=== PATIENT | female | born 1975 | race Caucasian/White ===

== ENCOUNTER 2018-01-12 10:39 | Emergency (ER) | payer MEDICARE, OTHER ==
[~2018-01-12] VITALS: Ht 154.9 cm; Wt 70.4 kg
[~2018-01-12 10:39] MED LIST: ALBU8HFA PO; AZIT-55 PO; ESOM40CA PO; FLUT16SP10 NAS; LISI1TAB13 PO; PANT-47 PO; PRED10TA23 PO; TRAZ-143 PF
[2018-01-12] MEDS ORDERED: normal saline 1000ML IV soln IVB ONE (12:10)
[2018-01-12] MEDS ORDERED: albuterol 2.5 MG/3 ML nebule NEB ONE (12:10)
[2018-01-12] MEDS ORDERED: ipratropium/albuterol 3ml nebule NEB ONE (12:10)
[2018-01-12] MEDS ORDERED: PRED20TA PO (13:44)
[2018-01-12] MEDS ORDERED: predniSONE 20 mg tablet PO ONE (13:45)
[2018-01-12 14:09] VITALS: BP 137/91
== END 2018-01-12 14:11 | disposition home or self-care (01) ==
LOC: ER 10:39
DX: J45.909 Unspecified asthma, uncomplicated (principal); I10 Essential (primary) hypertension; K21.9 Gastro-esophageal reflux disease without esophagitis; I25.10 Atherosclerotic heart disease of native coronary artery without angina pectoris; Z56.0 Unemployment, unspecified; Z88.0 Allergy status to penicillin; Z79.899 Other long term (current) drug therapy
CPT/HCPCS: 71045; 94640; 94760; 96360; 99284; J7030

== ENCOUNTER 2018-07-03 10:01 | Emergency (ER) | payer MEDICARE, OTHER ==
[~2018-07-03] VITALS: Ht 157.5 cm; Wt 64.8 kg
[~2018-07-03 10:01] MED LIST changes: -AZIT-55 PO; -PRED10TA23 PO; -TRAZ-143 PF; +TRAZ-218 PF
[2018-07-03] MEDS ORDERED: predniSONE 20 mg tablet PO ONE (10:20)
[2018-07-03] MEDS ORDERED: albuterol 2.5 MG/3 ML nebule CONTNEB PRN (10:20)
[2018-07-03] MEDS ORDERED: ipratropium 0.5 MG/2.5ML nebule IH ONE (10:20)
[2018-07-03] MEDS ORDERED: methylPREDNISolone sod succ 125mg/2ml vial IV ONE (11:45)
[2018-07-03] MEDS ORDERED: normal saline 1000ML IV soln IVB ONE (11:45)
[2018-07-03 12:09] LABS: BASOPHILS % (AUTO) 0.1 % (0-1); EOSINOPHILS # (AUTO) 0.1 X10'3 (0-0.9); EOSINOPHILS % (AUTO) 1.6 % (0-6); HEMATOCRIT 45.5 % (35.0-45.0); HEMOGLOBIN 15.8 g/dl (12.0-16.0); LYMPHOCYTES # (AUTO) 0.3 X10'3 (1.1-4.8); LYMPHOCYTES % (AUTO) 3.9 % (21-51); MEAN CORPUSCULAR HEMOGLOBIN 32.1 PG (27.0-31.0); MEAN CORPUSCULAR HGB CONC 34.7 % (33.0-36.5); MEAN CORPUSCULAR VOLUME 92.5 FL (78-98); MEAN PLATELET VOLUME 9.1 FL (7.4-10.4); MONOCYTES # (AUTO) 0.1 X10'3 (0-0.9); MONOCYTES % (AUTO) 1.3 % (2-12); NEUTROPHILS # (AUTO) 7.8 X10'3 (1.8-7.7); NEUTROPHILS % (AUTO) 93.1 % (42-75); PLATELET COUNT 251 X10'3 (140-440); RED BLOOD COUNT 4.92 X10'6 (4.20-5.60); RED CELL DISTRIBUTION WIDTH 13.7 % (11.5-14.5); WHITE BLOOD COUNT 8.4 X10'3 (4.5-11.0)
[2018-07-03 12:24] LABS: ALANINE AMINOTRANSFERASE 33 U/L (12-78); ALBUMIN 4.3 G/DL (3.4-5.0); ALBUMIN/GLOBULIN RATIO 1.2 (1.1-1.5); ALKALINE PHOSPHATASE 54 IU/L (46-116); ANION GAP 13 (8-16); ASPARTATE AMINO TRANSFERASE 29 U/L (10-37); BILIRUBIN,TOTAL 0.4 MG/DL (0.1-1.0); BLOOD UREA NITROGEN 10 MG/DL (7-18); BUN/CREATININE RATIO 11.4 (6.6-38.0); CALCIUM 9.5 MG/DL (8.5-10.1); CHLORIDE 102 MMOL/L (99-107); CREATININE 0.88 MG/DL (0.40-0.90); GLUCOSE 119 MG/DL (70-104); POTASSIUM 3.9 MMOL/L (3.5-5.1); SODIUM 137 MMOL/L (135-145); TOTAL CARBON DIOXIDE 21.8 MMOL/L (24-32); TOTAL PROTEIN 7.8 G/DL (6.4-8.2); eGFR 70 ML/MIN
[2018-07-03] MEDS: magnesium 1gm/100ml D5W IVPB 100 ML IV SCH ×2 (12:27→13:28)
[2018-07-03 12:43] LABS: CLARITY,URINE SLIGHTLY CLOUDY (Clear); COLOR,URINE YELLOW (Yellow); GLUCOSE, URINE NEGATIVE (Neg); KETONES,URINE 15 mg/dl (Neg); LEUKOCYTE ESTERASE ,URINE NEGATIVE (Neg); NITRITES, URINE NEGATIVE (Neg); OCCULT BLOOD,URINE SMALL (Neg); PH,URINE 5.5 (4.8-8.0); PROTEIN,URINE NEGATIVE (Neg); UROBILINOGEN,URINE 0.2 E.U/dL (0.2-1.0)
[2018-07-03 12:44] LABS: URINE HCG NEGATIVE (NEG)
[2018-07-03 12:48] LABS: UA COLLECTION TYPE CLN CATCH MIDSTREAM
[2018-07-03 12:50] LABS: MUCUS STRANDS MANY /LPF (Neg); SQUAMOUS EPITHELIAL CELL,UR MANY /LPF (FEW)
[2018-07-03 12:53] LABS: BACTERIA,URINE 1+ /HPF (Neg); RBC,URINE 0-2 /HPF (0-2); WBC,URINE 0-4 /HPF (0-4)
[2018-07-03 14:42] VITALS: BP 132/66
== END 2018-07-03 14:44 | disposition home or self-care (01) ==
LOC: ER 10:01
DX: J45.909 Unspecified asthma, uncomplicated (principal); I10 Essential (primary) hypertension; K21.9 Gastro-esophageal reflux disease without esophagitis; Z56.0 Unemployment, unspecified; Z88.0 Allergy status to penicillin; Z79.899 Other long term (current) drug therapy
CPT/HCPCS: 36415; 71045; 80053; 81001; 81025; 85025; 85379; 94640; 94644; 94760; 96365; 96366; 96375; 99291; J2930; J7030; J7512

== ENCOUNTER 2018-11-10 09:01 | Emergency (ER) | payer MEDICARE, OTHER ==
[~2018-11-10] VITALS: Ht 157.5 cm; Wt 69.0 kg
[2018-11-10] MEDS ORDERED: magnesium 2GM in 50ml NS 50 ML IV ONE (09:15)
[2018-11-10] MEDS ORDERED: albuterol 2.5 MG/3 ML nebule CONTNEB PRN (09:15)
[2018-11-10] MEDS ORDERED: LORazepam 2 mg/ml vial IV ONE (09:15)
[2018-11-10] MEDS ORDERED: normal saline 1000ML IV soln IVB ONE (09:15)
[2018-11-10] MEDS ORDERED: methylPREDNISolone sod succ 125mg/2ml vial IV ONE (09:15)
--- NOTE | 2018-11-10 10:50 | NUR ---
PT FINISHED CONT NEB RT TREATMENT, REPORTS FEEL OPEN UP AND NOT TIGHT WITH BREATHING, PT IS SPO2% 100% ON ROOM AIR, BUT ASKED TO BE PLACED ON OXYGEN FOR COMFORT, PT REPORTS USING OXYGEN AT HOME AT NIGHT, PT STILL HAS EXPIRATORY WHEEZES
[2018-11-10] MEDS ORDERED: terbutaline 1 mg/ml inj SQ STA (11:03)
[2018-11-10] MEDS ORDERED: ipratropium/albuterol 3ml nebule NEB ONE (11:05)
[2018-11-10 12:02] VITALS: BP 121/65
== END 2018-11-10 12:21 | disposition home or self-care (01) ==
LOC: ER 09:02
DX: J45.901 Unspecified asthma with (acute) exacerbation (principal); I10 Essential (primary) hypertension; K21.9 Gastro-esophageal reflux disease without esophagitis; Z88.0 Allergy status to penicillin; Z79.899 Other long term (current) drug therapy; Z56.0 Unemployment, unspecified
CPT/HCPCS: 71045; 94640; 94644; 94760; 96365; 96372; 96375; 99291; J2060; J2930; J3105; J3475; J7030

== ENCOUNTER 2019-03-25 06:19 | Emergency (ER) | payer MEDICARE ==
[~2019-03-25] VITALS: Ht 157.5 cm; Wt 70.0 kg
[~2019-03-25 06:19] MED LIST changes: -TRAZ-218 PF; +TRAZ-251 PF
[2019-03-25] MEDS ORDERED: acetaminophen 325mg tablet PO ONE (07:00)
[2019-03-25] MEDS ORDERED: HYDR-4353 PO (07:07)
[2019-03-25] MEDS ORDERED: ONDA4TAB6 PO (07:07)
--- NOTE | 2019-03-25 07:09 | NUR ---
pt left foot elevated ice pack applied medicated for pain as ordered with tylenol 650 mg
--- NOTE | 2019-03-25 07:32 | NUR ---
DIRECTOR OF SUSTAINABILITY PROGRAMS AT BEDSIDE.
--- NOTE | 2019-03-25 08:03 | NUR ---
PT HAD SOFT CAST PLACED BY TECH, BEEN GIVEN INSTRUCTIONS ON NON WEIGHT BEARING, AND HOW TO USE THE CRUTCHES. PT DEMONSTRATED ABILITY WELL. SUGGESTED PATIENT RID THE FLIP FLOP WITH CRUTCHES USE.
[2019-03-25 08:05] VITALS: BP 142/94
== END 2019-03-25 08:00 | disposition home or self-care (01) ==
LOC: ER 06:20
DX: S92.312A Displaced fracture of first metatarsal bone, left foot, initial encounter for closed fracture (principal); S80.212A Abrasion, left knee, initial encounter; I10 Essential (primary) hypertension; J45.909 Unspecified asthma, uncomplicated; K21.9 Gastro-esophageal reflux disease without esophagitis; Z88.0 Allergy status to penicillin; Z79.899 Other long term (current) drug therapy; Z56.0 Unemployment, unspecified; W01.0XXA Fall on same level from slipping, tripping and stumbling without subsequent striking against object, initial encounter; Y93.01 Activity, walking, marching and hiking; Y92.89 Other specified places as the place of occurrence of the external cause; Y99.8 Other external cause status
CPT/HCPCS: 29515; 73630; 99283

== ENCOUNTER 2019-03-27 17:29 | Emergency (ER) | payer MEDICARE ==
[~2019-03-27] VITALS: Ht 157.5 cm; Wt 66.8 kg
[~2019-03-27 17:29] MED LIST changes: +HYDR-4353 PO; +ONDA4TAB6 PO
[2019-03-27 17:31] VITALS: BP 158/92
--- NOTE | 2019-03-27 18:15 | NUR ---
PRESENT SPLINT REMOVED. NEW SPLINT WITH SARA WRAP APPLIED TO LEFT LOWER LEG. PATIENT STATES THIS SPLINT IS MORE COMFORTABLE AND PROVIDING SUPPORT TO LEFT FOOT.
== END 2019-03-27 18:31 | disposition home or self-care (01) ==
LOC: ER 17:29
DX: S92.312D Displaced fracture of first metatarsal bone, left foot, subsequent encounter for fracture with routine healing (principal); S80.212D Abrasion, left knee, subsequent encounter; I10 Essential (primary) hypertension; J45.909 Unspecified asthma, uncomplicated; K21.9 Gastro-esophageal reflux disease without esophagitis; Z56.0 Unemployment, unspecified; Z88.0 Allergy status to penicillin; Z79.899 Other long term (current) drug therapy; W01.0XXD Fall on same level from slipping, tripping and stumbling without subsequent striking against object, subsequent encounter
CPT/HCPCS: 29515; 73564; 99283

== ENCOUNTER 2019-04-05 11:35 | Outpatient (CLI) | payer MEDICARE ==
[2019-04-05 12:40] VITALS: BP 139/93
== END 2019-04-05 11:58 | disposition home or self-care (01) ==
LOC: ORTHO 11:35
PROVIDERS: ATTEND Orthopaedic Surgery
DX: S62.232A Other displaced fracture of base of first metacarpal bone, left hand, initial encounter for closed fracture (principal); I10 Essential (primary) hypertension; J45.909 Unspecified asthma, uncomplicated; X58.XXXA Exposure to other specified factors, initial encounter; Y93.89 Activity, other specified; Y92.89 Other specified places as the place of occurrence of the external cause; Y99.8 Other external cause status
CPT/HCPCS: G0463

== ENCOUNTER 2019-05-04 11:15 | Outpatient (CLI) | payer MEDICARE ==
[~2019-05-04 11:15] MED LIST changes: -HYDR-4353 PO
== END 2019-05-04 12:25 | disposition home or self-care (01) ==
LOC: ORTHO 11:15
PROVIDERS: ATTEND Orthopaedic Surgery
DX: S92.312D Displaced fracture of first metatarsal bone, left foot, subsequent encounter for fracture with routine healing (principal); I10 Essential (primary) hypertension; J45.909 Unspecified asthma, uncomplicated; X58.XXXD Exposure to other specified factors, subsequent encounter
CPT/HCPCS: 73630

== ENCOUNTER 2019-08-15 10:19 | Emergency (ER) | payer MEDICARE ==
[~2019-08-15] VITALS: Ht 157.5 cm; Wt 71.3 kg
[~2019-08-15 10:19] MED LIST changes: -LISI1TAB13 PO; +LISI1TAB29 PO
--- NOTE | 2019-08-15 10:54 | NUR ---
Pt complains of sinus pressure and left ear pain. Some clear drainage from ear. Yellow and bloody when she blows her nose and yellow sputum with cough.
[2019-08-15] MEDS ORDERED: triamcinolone acetonide 40mg/ml inj IM ONE (11:45)
[2019-08-15] MEDS ORDERED: albuterol 2.5 MG/3 ML nebule NEB ONE (11:45)
--- NOTE | 2019-08-15 11:52 | NUR ---
pt med administered by patricia dong ,informed rt is paged for neb treatment.rt at bedside to give breathing tx.pt vitals updated.
[2019-08-15] MEDS ORDERED: PRED10TA23 PO (12:03)
[2019-08-15 12:30] VITALS: BP 148/93
== END 2019-08-15 12:32 | disposition home or self-care (01) ==
LOC: ER 10:20
DX: J45.901 Unspecified asthma with (acute) exacerbation (principal); I10 Essential (primary) hypertension; J45.909 Unspecified asthma, uncomplicated; K21.9 Gastro-esophageal reflux disease without esophagitis; F32.9 Major depressive disorder, single episode, unspecified; I25.10 Atherosclerotic heart disease of native coronary artery without angina pectoris; Z88.0 Allergy status to penicillin; Z79.899 Other long term (current) drug therapy
CPT/HCPCS: 94640; 94760; 96372; 99284; J3301

== ENCOUNTER 2019-08-25 12:11 | Emergency (ER) | payer MEDICARE ==
[~2019-08-25] VITALS: Ht 157.5 cm; Wt 68.2 kg
[~2019-08-25 12:11] MED LIST changes: +PRED10TA23 PO
[2019-08-25 12:45] LABS: BASOPHILS % (AUTO) 0.3 % (0-1); EOSINOPHILS % (AUTO) 0.3 % (0-6); HEMATOCRIT 44.9 % (35.0-45.0); HEMOGLOBIN 15.7 g/dl (12.0-16.0); LYMPHOCYTES # (AUTO) 1.4 X10'3 (1.1-4.8); LYMPHOCYTES % (AUTO) 16.6 % (21-51); MEAN CORPUSCULAR HGB CONC 34.9 g/dL (33.0-36.5); MEAN CORPUSCULAR VOLUME 94.5 FL (78-98); MEAN PLATELET VOLUME 8.8 FL (7.4-10.4); MONOCYTES # (AUTO) 0.6 X10'3 (0-0.9); MONOCYTES % (AUTO) 7.4 % (2-12); NEUTROPHILS # (AUTO) 6.4 X10'3 (1.8-7.7); NEUTROPHILS % (AUTO) 75.4 % (42-75); PLATELET COUNT 314 X10'3 (140-440); RED BLOOD COUNT 4.75 X10'6 (4.20-5.60); RED CELL DISTRIBUTION WIDTH 12.4 % (11.5-14.5); WHITE BLOOD COUNT 8.5 X10'3 (4.5-11.0)
[2019-08-25 13:00] LABS: PARTIAL THROMBOPLASTIN TIME 24 SECONDS (22-32)
[2019-08-25 13:02] LABS: ALANINE AMINOTRANSFERASE 49 U/L (12-78); ALBUMIN 4.4 G/DL (3.4-5.0); ALBUMIN/GLOBULIN RATIO 1.1 (1.1-1.5); ALKALINE PHOSPHATASE 56 IU/L (46-116); ANION GAP 17 (8-16); ASPARTATE AMINO TRANSFERASE 40 U/L (10-37); BLOOD UREA NITROGEN 18 MG/DL (7-18); BUN/CREATININE RATIO 21.4 (6.6-38.0); CALCIUM 9.5 MG/DL (8.5-10.1); CHLORIDE 96 MMOL/L (99-107); CREATININE 0.84 MG/DL (0.40-0.90); GLUCOSE 99 MG/DL (70-104); POTASSIUM 3.4 MMOL/L (3.5-5.1); SODIUM 139 MMOL/L (135-145); TOTAL CARBON DIOXIDE 25.6 MMOL/L (24-32); TOTAL PROTEIN 8.4 G/DL (6.4-8.2); eGFR 74 ML/MIN
[2019-08-25] MEDS ORDERED: ondansetron 4mg rapidly disintigrating tab PO ONE (13:40)
[2019-08-25 14:00] LABS: D-DIMER 0.39 MG/L FEU (0-0.50)
[2019-08-25] MEDS ORDERED: ONDA4TAB12 PO (14:11)
[2019-08-25 14:22] VITALS: BP 145/106
== END 2019-08-25 14:25 | disposition home or self-care (01) ==
LOC: ER 12:12
DX: R00.2 Palpitations (principal); R11.2 Nausea with vomiting, unspecified; I10 Essential (primary) hypertension; J45.909 Unspecified asthma, uncomplicated; K21.9 Gastro-esophageal reflux disease without esophagitis; F41.9 Anxiety disorder, unspecified; F32.9 Major depressive disorder, single episode, unspecified; I25.10 Atherosclerotic heart disease of native coronary artery without angina pectoris; Z88.0 Allergy status to penicillin; Z79.899 Other long term (current) drug therapy
CPT/HCPCS: 36415; 71045; 80053; 84484; 85025; 85379; 85610; 85730; 93005; 99284

== ENCOUNTER 2019-12-23 13:03 | Emergency (ER) | payer MEDICARE ==
[~2019-12-23] VITALS: Ht 157.5 cm; Wt 69.0 kg
[~2019-12-23 13:03] MED LIST changes: +ONDA4TAB12 PO; -PRED10TA23 PO
[2019-12-23 13:21] VITALS: BP 126/72
[2019-12-23] MEDS ORDERED: PRED20TA PO (15:34)
== END 2019-12-23 15:45 | disposition home or self-care (01) ==
LOC: ER 13:04
DX: B09 Unspecified viral infection characterized by skin and mucous membrane lesions (principal); I10 Essential (primary) hypertension; J45.909 Unspecified asthma, uncomplicated; K21.9 Gastro-esophageal reflux disease without esophagitis; F41.9 Anxiety disorder, unspecified; F32.9 Major depressive disorder, single episode, unspecified; Z79.899 Other long term (current) drug therapy; Z88.0 Allergy status to penicillin
CPT/HCPCS: 99283

== ENCOUNTER 2020-01-01 23:55 | Emergency (ER) | payer MEDICARE ==
[~2020-01-01] VITALS: Ht 157.5 cm; Wt 68.0 kg
[~2020-01-01 23:55] MED LIST changes: +PRED20TA PO
[2020-01-02] MEDS ORDERED: magnesium 2GM in 50ml NS 50 ML IV ONE (00:20)
[2020-01-02] MEDS ORDERED: methylPREDNISolone sod succ 125mg/2ml vial IV ONE (00:20)
[2020-01-02] MEDS ORDERED: albuterol 2.5 MG/3 ML nebule CONTNEB PRN (00:20)
[2020-01-02 01:29] VITALS: BP 122/83
== END 2020-01-02 02:15 | disposition home or self-care (01) ==
LOC: ER 23:56
DX: J45.901 Unspecified asthma with (acute) exacerbation (principal); I10 Essential (primary) hypertension; K21.9 Gastro-esophageal reflux disease without esophagitis; F32.9 Major depressive disorder, single episode, unspecified; F41.9 Anxiety disorder, unspecified; Z88.0 Allergy status to penicillin; Z79.899 Other long term (current) drug therapy
CPT/HCPCS: 94644; 96365; 96375; 99285; J2930; J3475; 94760

== ENCOUNTER 2020-01-23 10:35 | Emergency (ER) | payer MEDICARE ==
[~2020-01-23] VITALS: Ht 157.5 cm; Wt 68.0 kg
[2020-01-23 10:43] VITALS: BP 136/86
[2020-01-23] MEDS ORDERED: ipratropium/albuterol 3ml nebule NEB ONE (10:45)
[2020-01-23 11:03] LABS: BASOPHILS # (AUTO) 0.1 X10'3 (0-0.2); BASOPHILS % (AUTO) 1.6 % (0-1); EOSINOPHILS # (AUTO) 0.2 X10'3 (0-0.9); EOSINOPHILS % (AUTO) 3.3 % (0-6); HEMATOCRIT 43.4 % (35.0-45.0); LYMPHOCYTES % (AUTO) 29.6 % (21-51); MEAN CORPUSCULAR HEMOGLOBIN 32.7 PG (27.0-31.0); MEAN CORPUSCULAR HGB CONC 34.5 g/dL (33.0-36.5); MEAN CORPUSCULAR VOLUME 94.6 FL (78-98); MONOCYTES # (AUTO) 0.5 X10'3 (0-0.9); MONOCYTES % (AUTO) 8.1 % (2-12); NEUTROPHILS # (AUTO) 3.8 X10'3 (1.8-7.7); NEUTROPHILS % (AUTO) 57.4 % (42-75); PLATELET COUNT 274 X10'3 (140-440); RED BLOOD COUNT 4.59 X10'6 (4.20-5.60); RED CELL DISTRIBUTION WIDTH 12.5 % (11.5-14.5); WHITE BLOOD COUNT 6.7 X10'3 (4.5-11.0)
[2020-01-23 11:22] LABS: D-DIMER 0.21 MG/L FEU (0-0.50)
[2020-01-23 11:23] LABS: ALANINE AMINOTRANSFERASE 23 U/L (12-78); ALBUMIN 3.7 G/DL (3.4-5.0); ALKALINE PHOSPHATASE 59 IU/L (46-116); ANION GAP 8 (8-16); ASPARTATE AMINO TRANSFERASE 24 U/L (10-37); BILIRUBIN,TOTAL 0.5 MG/DL (0.1-1.0); BLOOD UREA NITROGEN 10 MG/DL (7-18); BUN/CREATININE RATIO 11.8 (6.6-38.0); CALCIUM 8.7 MG/DL (8.5-10.1); CHLORIDE 104 MMOL/L (99-107); CREATININE 0.85 MG/DL (0.40-0.90); GLUCOSE 105 MG/DL (70-104); POTASSIUM 3.2 MMOL/L (3.5-5.1); SODIUM 139 MMOL/L (135-145); TOTAL CARBON DIOXIDE 27.2 MMOL/L (24-32); TOTAL PROTEIN 7.4 G/DL (6.4-8.2); eGFR 72 ML/MIN
== END 2020-01-23 11:54 | disposition home or self-care (01) ==
LOC: ER 10:35
DX: J45.909 Unspecified asthma, uncomplicated (principal); I10 Essential (primary) hypertension; K21.9 Gastro-esophageal reflux disease without esophagitis; F41.9 Anxiety disorder, unspecified; F32.9 Major depressive disorder, single episode, unspecified; Z88.0 Allergy status to penicillin; Z79.899 Other long term (current) drug therapy
CPT/HCPCS: 36415; 71046; 80053; 85025; 85379; 93005; 94640; 94760; 99285

== ENCOUNTER 2021-04-15 16:24 | Emergency (ER) | payer MEDICARE ==
[~2021-04-15] VITALS: Ht 157.5 cm; Wt 69.9 kg
[~2021-04-15 16:24] MED LIST changes: -PRED20TA PO
[2021-04-15] MEDS ORDERED: POLY17PO10 PO (21:19)
[2021-04-15] MEDS ORDERED: PHEN51CR24 RC (21:19)
[2021-04-15 21:25] VITALS: BP 117/89
== END 2021-04-15 21:27 | disposition home or self-care (01) ==
LOC: ER 16:25
DX: K60.2 Anal fissure, unspecified (principal); I10 Essential (primary) hypertension; J45.909 Unspecified asthma, uncomplicated; K21.9 Gastro-esophageal reflux disease without esophagitis; Z79.899 Other long term (current) drug therapy; Z88.0 Allergy status to penicillin
CPT/HCPCS: 99282; 99283

== ENCOUNTER 2021-07-14 17:04 | Emergency (ER) | payer MEDICARE ==
[~2021-07-14] VITALS: Ht 157.5 cm; Wt 69.1 kg
[~2021-07-14 17:04] MED LIST changes: +PHEN51CR24 RC
[2021-07-14 18:38] VITALS: BP 155/98
== END 2021-07-14 21:24 | disposition left against medical advice (07) ==
LOC: ER 17:06
DX: R00.2 Palpitations (principal); Z53.21 Procedure and treatment not carried out due to patient leaving prior to being seen by health care provider
CPT/HCPCS: 93005

== ENCOUNTER 2021-07-16 04:13 | Emergency (ER) | payer BC, MEDICARE ==
[~2021-07-16] VITALS: Ht 157.5 cm; Wt 67.6 kg
[2021-07-16 04:25] VITALS: BP 144/91
== END 2021-07-16 06:29 | disposition home or self-care (01) ==
LOC: ER 04:13
DX: M54.2 Cervicalgia (principal); R51.9 Headache, unspecified; R19.7 Diarrhea, unspecified; H53.9 Unspecified visual disturbance; I10 Essential (primary) hypertension; J45.909 Unspecified asthma, uncomplicated; K21.9 Gastro-esophageal reflux disease without esophagitis; F41.9 Anxiety disorder, unspecified; F32.9 Major depressive disorder, single episode, unspecified; Z88.0 Allergy status to penicillin
CPT/HCPCS: 70450; 72125; 99285

== ENCOUNTER 2021-10-01 08:50 | Emergency (ER) | payer MEDICARE ==
[~2021-10-01] VITALS: Ht 157.5 cm; Wt 67.3 kg
[~2021-10-01 08:50] MED LIST changes: -LISI1TAB29 PO; +LISI1TAB53 PO
[2021-10-01 09:10] VITALS: BP 135/93
[2021-10-01] MEDS ORDERED: DEXT30SU5 PO (10:23)
[2021-10-01] MEDS: albuterol 2.5 MG/3 ML nebule NEB ONE (10:43)
[2021-10-01] MEDS ORDERED: PRED20TA PO (11:17)
== END 2021-10-01 11:19 | disposition home or self-care (01) ==
LOC: ER 08:51
DX: Z13.89 Encounter for screening for other disorder (principal); Z20.822 Contact with and (suspected) exposure to COVID-19; J20.9 Acute bronchitis, unspecified; R05.9 Cough, unspecified; R09.89 Other specified symptoms and signs involving the circulatory and respiratory systems; I10 Essential (primary) hypertension; J45.909 Unspecified asthma, uncomplicated; K21.9 Gastro-esophageal reflux disease without esophagitis; F41.9 Anxiety disorder, unspecified; F32.9 Major depressive disorder, single episode, unspecified; Z88.0 Allergy status to penicillin; Z79.899 Other long term (current) drug therapy
CPT/HCPCS: 71045; 87635; 94640; 99284; C9803; 94760

== ENCOUNTER 2021-11-19 08:38 | Emergency (ER) | payer MEDICARE ==
[~2021-11-19] VITALS: Ht 157.5 cm; Wt 64.5 kg
[~2021-11-19 08:38] MED LIST changes: +DEXT30SU5 PO
[2021-11-19] MEDS ORDERED: predniSONE 20 mg tablet PO ONE (09:30)
[2021-11-19] MEDS: albuterol 2.5 MG/3 ML nebule CONTNEB PRN ×2 (09:40→11:43)
[2021-11-19] MEDS ORDERED: terbutaline 1 mg/ml inj SQ STA (10:44)
[2021-11-19] MEDS ORDERED: albuterol 2.5 MG/3 ML nebule CONTNEB PRN (11:20)
[2021-11-19] MEDS ORDERED: FLUT16SP10 NAS (12:35)
[2021-11-19] MEDS ORDERED: PRED20TA PO (12:35)
[2021-11-19 13:41] VITALS: BP 130/84
== END 2021-11-19 13:13 | disposition home or self-care (01) ==
LOC: ER 08:38
DX: J45.901 Unspecified asthma with (acute) exacerbation (principal); I10 Essential (primary) hypertension; K21.9 Gastro-esophageal reflux disease without esophagitis; Z88.0 Allergy status to penicillin; Z79.899 Other long term (current) drug therapy
CPT/HCPCS: 71046; 94640; 94644; 94645; 96372; 99285; J3105; J7512; 94760; A7015

== ENCOUNTER 2022-11-16 11:04 | Emergency (ER) | payer MEDICARE, MEDICAID ==
[~2022-11-16] VITALS: Ht 157.5 cm; Wt 71.8 kg
[2022-11-16] MEDS ORDERED: magnesium 2GM in 50ml NS 50 ML IV ONE (12:35)
[2022-11-16] MEDS ORDERED: methylPREDNISolone sod succ 125mg/2ml vial IV ONE (12:35)
[2022-11-16] MEDS ORDERED: albuterol 2.5 MG/3 ML nebule CONTNEB PRN (12:35)
[2022-11-16] MEDS ORDERED: ipratropium/albuterol 3ml nebule NEB ONE (13:45)
[2022-11-16] MEDS ORDERED: CEPH250T PO (14:16)
[2022-11-16] MEDS ORDERED: PRED20TA PO (14:16)
[2022-11-16 14:43] VITALS: BP 122/80
--- NOTE | 2022-11-16 14:43 | NUR ---
Per RT Pt refused neb tx. RAQUEL pablo
== END 2022-11-16 14:46 | disposition home or self-care (01) ==
LOC: ER 11:04
DX: J20.9 Acute bronchitis, unspecified (principal); Z20.822 Contact with and (suspected) exposure to COVID-19; J45.901 Unspecified asthma with (acute) exacerbation; R06.02 Shortness of breath; I10 Essential (primary) hypertension; K21.9 Gastro-esophageal reflux disease without esophagitis; Z88.0 Allergy status to penicillin
CPT/HCPCS: 71045; 87635; 94644; 96365; 96366; 96375; 99291; C9803; J2930; J3475; 94640; 94760

== ENCOUNTER 2022-12-23 00:08 | Emergency (ER) | payer MEDICARE, MEDICAID ==
[~2022-12-23] VITALS: Ht 157.5 cm; Wt 75.0 kg
[2022-12-23] MEDS ORDERED: CLIN150C8 PO (01:23)
[2022-12-23] MEDS ORDERED: ERYT1OIN6 LEFTEYE (01:23)
[2022-12-23] MEDS ORDERED: erythromycin ophthalmic ointment 1gm tube LEFTEYE ONE (01:25)
[2022-12-23] MEDS ORDERED: clindamycin 150mg capsule PO ONE (01:25)
[2022-12-23 01:39] VITALS: BP 135/89
== END 2022-12-23 01:41 | disposition home or self-care (01) ==
LOC: ER 00:10
DX: J32.9 Chronic sinusitis, unspecified (principal); H10.022 Other mucopurulent conjunctivitis, left eye; I10 Essential (primary) hypertension; J45.909 Unspecified asthma, uncomplicated; K21.9 Gastro-esophageal reflux disease without esophagitis; F41.9 Anxiety disorder, unspecified; F32.9 Major depressive disorder, single episode, unspecified; Z90.710 Acquired absence of both cervix and uterus; Z88.0 Allergy status to penicillin; Z79.899 Other long term (current) drug therapy
CPT/HCPCS: 99283

== ENCOUNTER 2023-04-04 09:47 | Emergency (ER) | payer MEDICARE, MEDICAID ==
[~2023-04-04] VITALS: Ht 157.5 cm; Wt 72.8 kg
[~2023-04-04 09:47] MED LIST changes: +CLIN-214 PO
[2023-04-04 10:04] VITALS: BP 133/88
[2023-04-04] MEDS ORDERED: predniSONE 20 mg tablet PO ONE (10:10)
[2023-04-04] MEDS ORDERED: ipratropium/albuterol 3ml nebule NEB ONE (10:10)
[2023-04-04] MEDS ORDERED: AZIT250T2 PO (10:19)
[2023-04-04] MEDS ORDERED: PRED10TA PO (10:19)
== END 2023-04-04 11:34 | disposition home or self-care (01) ==
LOC: ER 09:47
DX: J45.901 Unspecified asthma with (acute) exacerbation (principal); J32.8 Other chronic sinusitis; K21.9 Gastro-esophageal reflux disease without esophagitis; F41.9 Anxiety disorder, unspecified; Z87.81 Personal history of (healed) traumatic fracture; I10 Essential (primary) hypertension; Z88.0 Allergy status to penicillin; Z79.899 Other long term (current) drug therapy
CPT/HCPCS: 71045; 94640; 99283; J7512; 94760

== ENCOUNTER 2023-08-12 16:26 | Emergency (ER) | payer MEDICARE, MEDICAID ==
[~2023-08-12] VITALS: Ht 157.5 cm; Wt 75.0 kg
[~2023-08-12 16:26] MED LIST changes: +PRED10TA PO
[2023-08-12] MEDS ORDERED: ibuprofen 200mg tablet PO ONE (16:50)
[2023-08-12 18:26] LABS: BASOPHILS # (AUTO) 0.1 X10'3 (0-0.2); BASOPHILS % (AUTO) 0.5 % (0-1); EOSINOPHILS % (AUTO) 0.3 % (0-6); HEMATOCRIT 38.3 % (35.0-45.0); HEMOGLOBIN 12.9 g/dl (12.0-16.0); LYMPHOCYTES # (AUTO) 0.8 X10'3 (1.1-4.8); LYMPHOCYTES % (AUTO) 5.8 % (21-51); MEAN CORPUSCULAR HEMOGLOBIN 32.1 PG (27.0-31.0); MEAN CORPUSCULAR HGB CONC 33.6 g/dL (33.0-36.5); MEAN CORPUSCULAR VOLUME 95.7 FL (78-98); MEAN PLATELET VOLUME 9.5 FL (7.4-10.4); MONOCYTES # (AUTO) 0.9 X10'3 (0-0.9); MONOCYTES % (AUTO) 6.7 % (2-12); NEUTROPHILS % (AUTO) 86.7 % (42-75); PLATELET COUNT 205 X10'3 (140-440); RED CELL DISTRIBUTION WIDTH 12.6 % (11.5-14.5); WHITE BLOOD COUNT 13.9 X10'3 (4.5-11.0)
[2023-08-12 18:46] VITALS: BP 113/71; PULSE 85; RESP 16; TEMP 99.3; O2SAT 95
[2023-08-12 18:46] LABS: ALANINE AMINOTRANSFERASE 27 U/L (12-78); ALBUMIN 2.9 G/DL (3.4-5.0); ALBUMIN/GLOBULIN RATIO 0.7 (1.1-1.5); ALKALINE PHOSPHATASE 89 IU/L (46-116); ANION GAP 9 (8-16); ASPARTATE AMINO TRANSFERASE 24 U/L (10-37); BLOOD UREA NITROGEN 8 MG/DL (7-18); BUN/CREATININE RATIO 9.2 (10.0-20.0); CALCIUM 8.6 MG/DL (8.5-10.1); CHLORIDE 98 MMOL/L (99-107); CREATININE 0.87 MG/DL (0.40-0.90); GLUCOSE 142 MG/DL (70-104); PRO BRAIN NATRIURETIC PEPTIDE 558 PG/ML (0-125); SODIUM 134 MMOL/L (135-145); TOTAL CARBON DIOXIDE 26.9 MMOL/L (24-32); TOTAL PROTEIN 7.2 G/DL (6.4-8.2); eCRCL 63 ML/MIN; eGFR 69 ML/MIN
[2023-08-12 18:57] LABS: POTASSIUM 2.7 MMOL/L (3.5-5.1)
[2023-08-12 20:27] LABS: LARGE PLATELETS FEW; PLATELET ESTIMATE NORMAL; TOTAL CELLS COUNTED 100
== END 2023-08-12 21:11 | disposition left against medical advice (07) ==
LOC: ER 16:27
DX: J18.9 Pneumonia, unspecified organism (principal); Z53.21 Procedure and treatment not carried out due to patient leaving prior to being seen by health care provider
CPT/HCPCS: 36415; 71046; 80053; 83605; 83880; 85007; 85025; 87040; 99281

== ENCOUNTER 2023-09-04 12:14 | Emergency (ER) | payer MEDICARE, MEDICAID ==
[~2023-09-04] VITALS: Ht 157.5 cm; Wt 75.0 kg
[2023-09-04] MEDS ORDERED: ipratropium 0.5 MG/2.5ML nebule IH ONE (12:30)
[2023-09-04] MEDS ORDERED: albuterol 2.5 MG/3 ML nebule NEB ONE (12:30)
[2023-09-04 12:54] VITALS: PULSE 72; RESP 16
[2023-09-04 13:07] VITALS: PULSE 77; RESP 16; O2SAT 100
[2023-09-04 13:27] VITALS: BP 111/72; PULSE 70; TEMP 98.3; O2SAT 100
[2023-09-04 13:36] VITALS: RESP 18
== END 2023-09-04 13:39 | disposition home or self-care (01) ==
LOC: ER 12:14
DX: J45.909 Unspecified asthma, uncomplicated (principal)
CPT/HCPCS: 71046; 94640; 94760; 99283

== ENCOUNTER 2023-09-19 11:36 | Inpatient (IN) | payer MEDICARE, MEDICAID ==
[~2023-09-19] VITALS: Ht 157.5 cm; Wt 70.5 kg
[2023-09-19 12:17] LABS: BASOPHILS # (AUTO) 0.1 X10'3 (0-0.2); BASOPHILS % (AUTO) 1.2 % (0-1); EOSINOPHILS # (AUTO) 0.3 X10'3 (0-0.9); EOSINOPHILS % (AUTO) 5.6 % (0-6); HEMATOCRIT 39.1 % (35.0-45.0); HEMOGLOBIN 13.3 g/dl (12.0-16.0); LYMPHOCYTES # (AUTO) 1.1 X10'3 (1.1-4.8); LYMPHOCYTES % (AUTO) 22.1 % (21-51); MEAN CORPUSCULAR HEMOGLOBIN 32.1 PG (27.0-31.0); MEAN CORPUSCULAR HGB CONC 33.9 g/dL (33.0-36.5); MEAN CORPUSCULAR VOLUME 94.7 FL (78-98); MEAN PLATELET VOLUME 9.1 FL (7.4-10.4); MONOCYTES # (AUTO) 0.5 X10'3 (0-0.9); MONOCYTES % (AUTO) 11.1 % (2-12); NEUTROPHILS # (AUTO) 2.9 X10'3 (1.8-7.7); PLATELET COUNT 212 X10'3 (140-440); RED BLOOD COUNT 4.13 X10'6 (4.20-5.60); RED CELL DISTRIBUTION WIDTH 13.3 % (11.5-14.5); WHITE BLOOD COUNT 4.9 X10'3 (4.5-11.0)
[2023-09-19 12:30] LABS: ALANINE AMINOTRANSFERASE 27 U/L (12-78); ALBUMIN 3.4 G/DL (3.4-5.0); ALBUMIN/GLOBULIN RATIO 0.9 (1.1-1.5); ALKALINE PHOSPHATASE 77 IU/L (46-116); ANION GAP 9 (8-16); ASPARTATE AMINO TRANSFERASE 27 U/L (10-37); BILIRUBIN,TOTAL 0.4 MG/DL (0.1-1.0); BLOOD UREA NITROGEN 6 MG/DL (7-18); BUN/CREATININE RATIO 8.2 (10.0-20.0); CALCIUM 8.2 MG/DL (8.5-10.1); CHLORIDE 101 MMOL/L (99-107); CREATININE 0.73 MG/DL (0.40-0.90); GLUCOSE 102 MG/DL (70-104); POTASSIUM 3.2 MMOL/L (3.5-5.1); SODIUM 133 MMOL/L (135-145); TOTAL CARBON DIOXIDE 23.4 MMOL/L (24-32); TOTAL PROTEIN 7.1 G/DL (6.4-8.2); eCRCL 75 ML/MIN; eGFR 85 ML/MIN
[2023-09-19 12:37] LABS: PRO BRAIN NATRIURETIC PEPTIDE 287 PG/ML (0-125)
[2023-09-19] MEDS ORDERED: dexamethasone sod phosphate 10mg/ml inj IV STA (15:03)
[2023-09-19] MEDS ORDERED: albuterol 2.5 MG/3 ML nebule NEB ONE (15:05)
[2023-09-19] MEDS ORDERED: magnesium 2GM in 50ml NS 50 ML IV ONE (15:05)
[2023-09-19] MEDS ORDERED: ipratropium 0.5 MG/2.5ML nebule IH ONE (15:05)
[2023-09-19 15:48] LABS: HCG SERUM QL NEGATIVE
[2023-09-19 16:19] VITALS: PULSE 76; RESP 16; O2SAT 98
[2023-09-19 16:34] VITALS: PULSE 78; RESP 16; O2SAT 98
[2023-09-19] MEDS ORDERED: albuterol 2.5 MG/3 ML nebule CONTNEB PRN (18:40)
[2023-09-19] MEDS ORDERED: mag hydrox/Alum hydrox/simeth 30ml oral suspension PO PRN (19:45)
[2023-09-19] MEDS ORDERED: magnesium 2GM in 50ml NS 50 ML IV PRN (19:45)
[2023-09-19] MEDS ORDERED: HYDROcodone/acetaminophen 10/325mg tab PO PRN (19:45)
[2023-09-19] MEDS ORDERED: potassium Cl 20 mEq SR tablet PO PRN ×2 (19:45)
[2023-09-19] MEDS ORDERED: albuterol 2.5 MG/3 ML nebule NEB PRN (19:45)
[2023-09-19] MEDS ORDERED: ondansetron/PF 4mg/2ml inj IV PRN (19:45)
[2023-09-19] MEDS ORDERED: acetaminophen 325mg tablet PO PRN ×2 (19:45)
[2023-09-19] MEDS ORDERED: magnesium 4gm in 100ml NS 100 ML IV PRN (19:45)
[2023-09-19] MEDS ORDERED: potassium Cl 40MEQ/1/2NS 520ml 520 ML IV PRN (19:45)
[2023-09-19] MEDS ORDERED: HYDROcodone/acetaminophen 5mg/325mg tablet PO PRN (19:45)
[2023-09-19] MEDS ORDERED: magnesium hydroxide 30ml (MOM) UD suspension PO PRN (19:45)
[2023-09-19] MEDS: K and/or MAG REPLACEMENT MC SCH (19:56)
[2023-09-19] MEDS ORDERED: enoxaparin 40mg/0.4ml syringe SQ SCH (20:00)
[2023-09-19] MEDS: docusate sod 100mg capsule PO SCH (20:01)
[2023-09-19] MEDS: budesonide 0.5mg/2ml UD nebule IH SCH (21:12)
[2023-09-19 21:13] VITALS: PULSE 98; RESP 16; O2SAT 97
[2023-09-19] MEDS: ipratropium/albuterol 3ml nebule NEB SCH (21:13)
[2023-09-19 21:19] VITALS: PULSE 91; RESP 18
--- NOTE | 2023-09-19 23:33 | NUR ---
pt placed onto in-patient bed
[2023-09-20] VITALS (8 sets, daily range): BP systolic 136; BP diastolic 83; PULSE 72–96; RESP 16–18; TEMP 98.7; O2SAT 96–98
[2023-09-20] MEDS: methylPREDNISolone sod succ 125mg/2ml vial IV SCH ×2 (00:46→07:46)
[2023-09-20] MEDS ORDERED: FLUT1BLS4 INH (00:59)
[2023-09-20] MEDS ORDERED: ESOM20CA PO (00:59)
[2023-09-20] MEDS: ipratropium/albuterol 3ml nebule NEB SCH ×3 (02:48→14:56)
--- NOTE | 2023-09-20 02:55 | NUR ---
rt at bedside for treatment
[2023-09-20 02:58] LABS: BASOPHILS % (AUTO) 0.1 % (0-1); EOSINOPHILS % (AUTO) 0 % (0-6); HEMOGLOBIN 13.6 g/dl (12.0-16.0); LYMPHOCYTES # (AUTO) 0.4 X10'3 (1.1-4.8); LYMPHOCYTES % (AUTO) 7.3 % (21-51); MEAN CORPUSCULAR HEMOGLOBIN 32.3 PG (27.0-31.0); MEAN CORPUSCULAR HGB CONC 33.9 g/dL (33.0-36.5); MEAN CORPUSCULAR VOLUME 95.1 FL (78-98); MEAN PLATELET VOLUME 9.2 FL (7.4-10.4); MONOCYTES # (AUTO) 0.1 X10'3 (0-0.9); MONOCYTES % (AUTO) 1.3 % (2-12); NEUTROPHILS # (AUTO) 5.6 X10'3 (1.8-7.7); NEUTROPHILS % (AUTO) 91.3 % (42-75); PLATELET COUNT 243 X10'3 (140-440); RED CELL DISTRIBUTION WIDTH 13.6 % (11.5-14.5); WHITE BLOOD COUNT 6.1 X10'3 (4.5-11.0)
[2023-09-20 03:19] LABS: ALANINE AMINOTRANSFERASE 34 U/L (12-78); ALBUMIN 3.4 G/DL (3.4-5.0); ALBUMIN/GLOBULIN RATIO 0.9 (1.1-1.5); ALKALINE PHOSPHATASE 76 IU/L (46-116); ANION GAP 9 (8-16); ASPARTATE AMINO TRANSFERASE 33 U/L (10-37); BILIRUBIN,TOTAL 0.2 MG/DL (0.1-1.0); BLOOD UREA NITROGEN 12 MG/DL (7-18); CALCIUM 8.6 MG/DL (8.5-10.1); CHLORIDE 99 MMOL/L (99-107); GLUCOSE 180 MG/DL (70-104); MAGNESIUM 2.4 MG/DL (1.5-2.4); POTASSIUM 3.9 MMOL/L (3.5-5.1); SODIUM 131 MMOL/L (135-145); TOTAL CARBON DIOXIDE 23.2 MMOL/L (24-32); TOTAL PROTEIN 7.4 G/DL (6.4-8.2); eCRCL 54 ML/MIN; eGFR 59 ML/MIN
[2023-09-20] MEDS: K and/or MAG REPLACEMENT MC SCH (07:20)
[2023-09-20] MEDS: docusate sod 100mg capsule PO SCH (07:45)
--- NOTE | 2023-09-20 07:59 | NUR ---
RT paged for kelly
[2023-09-20] MEDS ORDERED: montelukast 10mg tablet PO SCH (08:00)
[2023-09-20] MEDS ORDERED: CefTRIAXone/D5W-Rocephin 1gm 50 ML IV SCH (08:00)
[2023-09-20] MEDS: budesonide 0.5mg/2ml UD nebule IH SCH (08:34)
--- NOTE | 2023-09-20 08:42 | NUR ---
breakfast tray provided to patient
--- NOTE | 2023-09-20 10:20 | NUR ---
Attempted to give report to the floor
--- NOTE | 2023-09-20 10:49 | NUR ---
Received report from ER Nurse of patients' care. Will assume once the pt comes onto floor.
[2023-09-20] MEDS ORDERED: PRED20TA PO (10:52)
[2023-09-20] MEDS ORDERED: MONT-40 PO (10:52)
[2023-09-20] MEDS ORDERED: IPRA3AMP9 NEB (10:52)
--- NOTE | 2023-09-20 11:10 | NUR ---
Patients DART cant be performed to due to already having discharge order from the Hospitalist as soon the patient arrived to the floor.
--- NOTE | 2023-09-20 17:15 | NUR ---
Patient discharged in no distress, accompanied by (ride home). Patients RR stable and WNL. Patients' IV d/c'd and canula intact. All paperwork signed and obtained, [employer] reinforcement went over w/ patient. Patient escorted to the front lobby, no distress.
--- NOTE | 2023-09-20 17:28 | NUR ---
I have reviewed and agree with all interventions, assessments performed, and documentation by Carmen Vazquez LVN.
== END 2023-09-20 16:50 | disposition home or self-care (01) | DRG 202 ==
LOC: ER 11:36 → ED HOLD 19:49 → ORTHO 4S 09-20 10:55
PROVIDERS: ADMIT Family Medicine; ATTEND Internal Medicine
DX: J45.901 Unspecified asthma with (acute) exacerbation (principal); E87.1 Hypo-osmolality and hyponatremia; I10 Essential (primary) hypertension; K21.9 Gastro-esophageal reflux disease without esophagitis; E87.6 Hypokalemia; F41.9 Anxiety disorder, unspecified; F32.A Depression, unspecified; Z20.822 Contact with and (suspected) exposure to COVID-19; Z90.710 Acquired absence of both cervix and uterus; Z82.49 Family history of ischemic heart disease and other diseases of the circulatory system; Z82.41 Family history of sudden cardiac death; Z88.0 Allergy status to penicillin; Z90.721 Acquired absence of ovaries, unilateral; Z87.01 Personal history of pneumonia (recurrent)
CPT/HCPCS: 36415; 71045; 80053; 83605; 83735; 83880; 84484; 84703; 85025; 87040; 87502; 87503; 87811; 93005; 94640; 94760; 99285; G0378; J0696; J1100; J1650; J2930; J3475

== ENCOUNTER 2024-02-06 16:37 | Emergency (ER) | payer MEDICARE ==
[~2024-02-06] VITALS: Ht 157.5 cm; Wt 80.0 kg
[~2024-02-06 16:37] MED LIST changes: -CLIN-214 PO; -DEXT30SU5 PO; +ESOM20CA PO; -ESOM40CA PO; -FLUT16SP10 NAS; +FLUT1BLS4 INH; +IPRA3AMP9 NEB; +MONT-40 PO; -ONDA4TAB12 PO; -ONDA4TAB6 PO; -PANT-47 PO; -PHEN51CR24 RC; -PRED10TA PO; -TRAZ-251 PF
[2024-02-06 17:34] VITALS: BP 136/78
[2024-02-06] MEDS ORDERED: magnesium 2GM in 50ml NS 50 ML IV ONE (18:20)
[2024-02-06] MEDS: albuterol 2.5 MG/3 ML nebule CONTNEB PRN (18:29)
[2024-02-06] MEDS: ipratropium 0.5 MG/2.5ML nebule IH ONE (18:29)
[2024-02-06 18:32] VITALS: PULSE 100; RESP 20; O2SAT 100
[2024-02-06] MEDS: magnesium 2GM in 50ml NS 50 ML IV ONE (18:52)
[2024-02-06 19:04] LABS: BASOPHILS # (AUTO) 0.1 X10'3 (0-0.2); EOSINOPHILS # (AUTO) 0.1 X10'3 (0-0.9); EOSINOPHILS % (AUTO) 0.8 % (0-6); HEMATOCRIT 41.5 % (35.0-45.0); HEMOGLOBIN 14.3 g/dl (12.0-16.0); LYMPHOCYTES # (AUTO) 2.2 X10'3 (1.1-4.8); LYMPHOCYTES % (AUTO) 23.5 % (21-51); MEAN CORPUSCULAR HEMOGLOBIN 30.6 PG (27.0-31.0); MEAN CORPUSCULAR HGB CONC 34.4 g/dL (33.0-36.5); MEAN CORPUSCULAR VOLUME 88.9 FL (78-98); MEAN PLATELET VOLUME 8.7 FL (7.4-10.4); MONOCYTES # (AUTO) 0.8 X10'3 (0-0.9); NEUTROPHILS # (AUTO) 6.2 X10'3 (1.8-7.7); NEUTROPHILS % (AUTO) 65.7 % (42-75); PLATELET COUNT 274 X10'3 (140-440); RED BLOOD COUNT 4.67 X10'6 (4.20-5.60); RED CELL DISTRIBUTION WIDTH 13.8 % (11.5-14.5); WHITE BLOOD COUNT 9.4 X10'3 (4.5-11.0)
[2024-02-06 19:15] LABS: ALBUMIN 3.3 G/DL (3.4-5.0); ANION GAP 8 (8-16); BLOOD UREA NITROGEN 12 MG/DL (7-18); BUN/CREATININE RATIO 15.8 (10.0-20.0); CALCIUM 8.7 MG/DL (8.5-10.1); CHLORIDE 100 MMOL/L (99-107); CREATININE 0.76 MG/DL (0.40-0.90); GLUCOSE 100 MG/DL (70-104); POTASSIUM 3.7 MMOL/L (3.5-5.1); SODIUM 136 MMOL/L (135-145); eCRCL 71 ML/MIN; eGFR 81 ML/MIN
[2024-02-06 19:36] VITALS: PULSE 116; RESP 16; O2SAT 96
[2024-02-06 22:09] VITALS: TEMP 97.3
== END 2024-02-06 22:12 | disposition home or self-care (01) ==
LOC: ER 16:38
DX: J45.901 Unspecified asthma with (acute) exacerbation (principal); Z20.822 Contact with and (suspected) exposure to COVID-19; I10 Essential (primary) hypertension; J45.909 Unspecified asthma, uncomplicated; K21.9 Gastro-esophageal reflux disease without esophagitis; Z90.710 Acquired absence of both cervix and uterus; F32.9 Major depressive disorder, single episode, unspecified; F41.9 Anxiety disorder, unspecified; Z88.0 Allergy status to penicillin
CPT/HCPCS: 36415; 71045; 80048; 82948; 84484; 85025; 87502; 87503; 87811; 93005; 94640; 96374; 99285; J3475; 94760; A7015

== ENCOUNTER 2024-03-09 09:32 | Emergency (ER) | payer MEDICARE ==
[~2024-03-09] VITALS: Ht 162.6 cm; Wt 72.7 kg
[2024-03-09 10:30] LABS: BASOPHILS # (AUTO) 0.2 X10'3 (0-0.2); BASOPHILS % (AUTO) 2.6 % (0-1); EOSINOPHILS # (AUTO) 0.3 X10'3 (0-0.9); HEMATOCRIT 41.7 % (35.0-45.0); HEMOGLOBIN 13.7 g/dl (12.0-16.0); LYMPHOCYTES # (AUTO) 2.2 X10'3 (1.1-4.8); LYMPHOCYTES % (AUTO) 36.2 % (21-51); MEAN CORPUSCULAR HEMOGLOBIN 29.1 PG (27.0-31.0); MEAN CORPUSCULAR HGB CONC 32.8 g/dL (33.0-36.5); MEAN CORPUSCULAR VOLUME 88.7 FL (78-98); MEAN PLATELET VOLUME 10.2 FL (7.4-10.4); MONOCYTES # (AUTO) 0.6 X10'3 (0-0.9); MONOCYTES % (AUTO) 9.7 % (2-12); NEUTROPHILS # (AUTO) 2.8 X10'3 (1.8-7.7); NEUTROPHILS % (AUTO) 46.5 % (42-75); PLATELET COUNT 260 X10'3 (140-440); RED CELL DISTRIBUTION WIDTH 13.5 % (11.5-14.5)
[2024-03-09 10:42] LABS: ALANINE AMINOTRANSFERASE 19 U/L (12-78); ALBUMIN 3.6 G/DL (3.4-5.0); ALBUMIN/GLOBULIN RATIO 1.1 (1.1-1.5); ALKALINE PHOSPHATASE 57 IU/L (46-116); ANION GAP 8 (8-16); ASPARTATE AMINO TRANSFERASE 18 U/L (10-37); BILIRUBIN,TOTAL 0.3 MG/DL (0.1-1.0); BLOOD UREA NITROGEN 11 MG/DL (7-18); BUN/CREATININE RATIO 15.9 (10.0-20.0); CALCIUM 8.7 MG/DL (8.5-10.1); CHLORIDE 100 MMOL/L (99-107); CREATINE KINASE 84 U/L (26-192); CREATININE 0.69 MG/DL (0.40-0.90); GLUCOSE 100 MG/DL (70-104); SODIUM 135 MMOL/L (135-145); TOTAL CARBON DIOXIDE 27.1 MMOL/L (24-32); eCRCL 85 ML/MIN; eGFR 90 ML/MIN
[2024-03-09 10:52] LABS: BETA HCG,QUANTITATIVE < 1.0 mIU/ml
[2024-03-09] MEDS: potassium Cl 20 mEq SR tablet PO STA (13:49)
[2024-03-09 14:09] LABS: BILIRUBIN,URINE NEGATIVE (Neg); CLARITY,URINE SLIGHTLY CLOUDY (Clear); COLOR,URINE YELLOW (Yellow); GLUCOSE, URINE NEGATIVE (Neg); KETONES,URINE NEGATIVE (Neg); LEUKOCYTE ESTERASE ,URINE NEGATIVE (Neg); NITRITES, URINE NEGATIVE (Neg); OCCULT BLOOD,URINE NEGATIVE (Neg); PROTEIN,URINE NEGATIVE (Neg); UROBILINOGEN,URINE 0.2 E.U/dL (0.2-1.0)
[2024-03-09 14:14] LABS: UA COLLECTION TYPE CLN CATCH MIDSTREAM
[2024-03-09 14:15] LABS: MUCUS STRANDS FEW /LPF (Neg); SQUAMOUS EPITHELIAL CELL,UR MANY /LPF (FEW)
[2024-03-09 14:16] LABS: BACTERIA,URINE FEW /HPF (Neg); RBC,URINE 0-2 /HPF (0-2); WBC,URINE 0-4 /HPF (0-4); YEAST FEW /HPF (NEGATIVE)
[2024-03-09] MEDS ORDERED: POTA-366 PO (18:20)
[2024-03-09 18:32] VITALS: BP 165/92; PULSE 68; RESP 18; TEMP 98.7; O2SAT 97
== END 2024-03-09 18:34 | disposition home or self-care (01) ==
LOC: ER 09:33
DX: M79.10 Myalgia, unspecified site (principal); E87.6 Hypokalemia; I10 Essential (primary) hypertension; J45.909 Unspecified asthma, uncomplicated; K21.9 Gastro-esophageal reflux disease without esophagitis; F41.9 Anxiety disorder, unspecified; F32.A Depression, unspecified; Z90.710 Acquired absence of both cervix and uterus; Z88.0 Allergy status to penicillin
CPT/HCPCS: 36415; 80053; 81001; 82550; 84132; 84702; 85025; 99283

== ENCOUNTER 2024-03-16 15:34 | Emergency (ER) | payer MEDICARE ==
[~2024-03-16] VITALS: Ht 157.5 cm; Wt 70.0 kg
[~2024-03-16 15:34] MED LIST changes: +POTA-366 PO
[2024-03-16 17:08] LABS: ALBUMIN 3.6 G/DL (3.4-5.0); ANION GAP 8 (8-16); BLOOD UREA NITROGEN 14 MG/DL (7-18); BUN/CREATININE RATIO 17.1 (10.0-20.0); CALCIUM 9.1 MG/DL (8.5-10.1); CHLORIDE 103 MMOL/L (99-107); CREATININE 0.82 MG/DL (0.40-0.90); GLUCOSE 120 MG/DL (70-104); POTASSIUM 3.2 MMOL/L (3.5-5.1); SODIUM 138 MMOL/L (135-145); TOTAL CARBON DIOXIDE 27.1 MMOL/L (24-32); eCRCL 66 ML/MIN; eGFR 74 ML/MIN
[2024-03-16 18:25] VITALS: BP 118/77; PULSE 78; RESP 16; TEMP 98.7; O2SAT 98
== END 2024-03-16 18:26 | disposition home or self-care (01) ==
LOC: ER 15:35
DX: M79.10 Myalgia, unspecified site (principal); I10 Essential (primary) hypertension; J45.909 Unspecified asthma, uncomplicated; K21.9 Gastro-esophageal reflux disease without esophagitis; F41.9 Anxiety disorder, unspecified; F32.A Depression, unspecified; Z90.49 Acquired absence of other specified parts of digestive tract; I25.10 Atherosclerotic heart disease of native coronary artery without angina pectoris; Z88.0 Allergy status to penicillin
CPT/HCPCS: 36415; 80048; 99283

== ENCOUNTER 2024-10-04 07:04 | Emergency (ER) | payer MEDICARE ==
[~2024-10-04] VITALS: Ht 157.5 cm; Wt 77.3 kg
[2024-10-04 07:05] VITALS: BP 179/105
[2024-10-04] MEDS: ALPRAZolam 0.5mg tablet PO ONE (07:52)
[2024-10-04] MEDS ORDERED: ALPR1TAB7 PO (08:48)
[2024-10-04 08:58] VITALS: PULSE 85; RESP 16; TEMP 97.5; O2SAT 98
== END 2024-10-04 08:58 | disposition home or self-care (01) ==
LOC: ER 07:05
DX: F43.22 Adjustment disorder with anxiety (principal); F41.9 Anxiety disorder, unspecified; R11.2 Nausea with vomiting, unspecified; F32.A Depression, unspecified; I10 Essential (primary) hypertension; J45.909 Unspecified asthma, uncomplicated; K21.9 Gastro-esophageal reflux disease without esophagitis; I25.10 Atherosclerotic heart disease of native coronary artery without angina pectoris; Z90.710 Acquired absence of both cervix and uterus; Z88.0 Allergy status to penicillin; Z79.52 Long term (current) use of systemic steroids; Z79.899 Other long term (current) drug therapy
CPT/HCPCS: 99283

== ENCOUNTER 2024-10-12 11:10 | Emergency (ER) | payer MEDICARE ==
[~2024-10-12] VITALS: Ht 162.6 cm; Wt 71.8 kg
[~2024-10-12 11:10] MED LIST changes: +ALPR1TAB7 PO
[2024-10-12 11:14] VITALS: TEMP 99.4
[2024-10-12] MEDS: dexamethasone sod phosphate 10mg/ml inj IM STA (12:21)
[2024-10-12] MEDS: ipratropium/albuterol 3ml nebule NEB STA ×2 (12:23→13:09)
[2024-10-12] MEDS ORDERED: PRED20TA PO (12:24)
[2024-10-12 12:26] VITALS: PULSE 102; PULSE 93; RESP 20; O2SAT 98
[2024-10-12 12:36] VITALS: BP 124/81
[2024-10-12 13:17] VITALS: PULSE 83; RESP 22; O2SAT 98
[2024-10-12 13:19] VITALS: PULSE 94; RESP 20; O2SAT 98
[2024-10-12] MEDS ORDERED: PROM118S5 PO (13:37)
== END 2024-10-12 13:52 | disposition home or self-care (01) ==
LOC: ER 11:11
DX: J45.909 Unspecified asthma, uncomplicated (principal); I10 Essential (primary) hypertension; K21.9 Gastro-esophageal reflux disease without esophagitis; I25.10 Atherosclerotic heart disease of native coronary artery without angina pectoris; F41.9 Anxiety disorder, unspecified; F32.A Depression, unspecified; Z88.0 Allergy status to penicillin; Z90.710 Acquired absence of both cervix and uterus
CPT/HCPCS: 71045; 94640; 96372; 99283; J1100; Z7610; 94760

== ENCOUNTER 2024-11-24 15:23 | Emergency (ER) | payer MEDICARE ==
[~2024-11-24] VITALS: Ht 157.5 cm; Wt 72.7 kg
[2024-11-24 15:41] VITALS: TEMP 98
[2024-11-24 16:57] LABS: BASOPHILS # (AUTO) 0.1 X10'3 (0-0.2); EOSINOPHILS # (AUTO) 0.1 X10'3 (0-0.9); EOSINOPHILS % (AUTO) 1.3 % (0-6); HEMOGLOBIN 11.7 g/dl (12.0-16.0); LYMPHOCYTES # (AUTO) 1.7 X10'3 (1.1-4.8); LYMPHOCYTES % (AUTO) 19.8 % (21-51); MEAN CORPUSCULAR HGB CONC 32.5 g/dL (33.0-36.5); MEAN CORPUSCULAR VOLUME 80.1 FL (78-98); MEAN PLATELET VOLUME 9.6 FL (7.4-10.4); MONOCYTES # (AUTO) 0.7 X10'3 (0-0.9); MONOCYTES % (AUTO) 7.4 % (2-12); NEUTROPHILS # (AUTO) 6.2 X10'3 (1.8-7.7); NEUTROPHILS % (AUTO) 70.5 % (42-75); PLATELET COUNT 311 X10'3 (140-440); RED BLOOD COUNT 4.49 X10'6 (4.20-5.60); RED CELL DISTRIBUTION WIDTH 16.3 % (11.5-14.5); WHITE BLOOD COUNT 8.7 X10'3 (4.5-11.0)
[2024-11-24 17:11] LABS: ALANINE AMINOTRANSFERASE 28 U/L (12-78); ALBUMIN 3.7 G/DL (3.4-5.0); ALBUMIN/GLOBULIN RATIO 0.9 (1.1-1.5); ALKALINE PHOSPHATASE 83 IU/L (46-116); ANION GAP 9 (8-16); ASPARTATE AMINO TRANSFERASE 27 U/L (10-37); BILIRUBIN,TOTAL 0.4 MG/DL (0.1-1.0); BLOOD UREA NITROGEN 16 MG/DL (7-18); BUN/CREATININE RATIO 18.4 (10.0-20.0); CALCIUM 8.4 MG/DL (8.5-10.1); CHLORIDE 98 MMOL/L (99-107); CREATININE 0.87 MG/DL (0.40-0.90); FREE T4 (FREE THYROXINE) 0.82 NG/DL (0.73-1.40); GLUCOSE 117 MG/DL (70-104); POTASSIUM 3.6 MMOL/L (3.5-5.1); PRO BRAIN NATRIURETIC PEPTIDE 35 PG/ML (0-125); SODIUM 133 MMOL/L (135-145); THYROID STIMULATING HORMONE 0.77 ulU/ml (0.34-4.50); TOTAL CARBON DIOXIDE 25.8 MMOL/L (24-32); eCRCL 62 ML/MIN; eGFR 69 ML/MIN
[2024-11-24 17:35] LABS: BILIRUBIN,URINE NEGATIVE (Neg); CLARITY,URINE CLEAR (Clear); GLUCOSE, URINE NEGATIVE (Neg); KETONES,URINE NEGATIVE (Neg); LEUKOCYTE ESTERASE ,URINE NEGATIVE (Neg); NITRITES, URINE NEGATIVE (Neg); OCCULT BLOOD,URINE NEGATIVE (Neg); PH,URINE 5.5 (4.8-8.0); PROTEIN,URINE NEGATIVE (Neg); UROBILINOGEN,URINE 0.2 E.U/dL (0.2-1.0)
[2024-11-24 17:37] LABS: HCG SERUM QL NEGATIVE
[2024-11-24 17:39] LABS: COLOR,URINE STRAW (Yellow); UA COLLECTION TYPE CLN CATCH MIDSTREAM
[2024-11-24 17:44] LABS: URINE AMPHETAMINE SCREEN NEGATIVE (Neg); URINE BARBITUATE SCREEN NEGATIVE (Neg); URINE BENZODIAZEPINES SCREEN NEGATIVE (Neg); URINE CANNABINOID SCREEN NEGATIVE (Neg); URINE COCAINE SCREEN NEGATIVE (Neg); URINE METHADONE SCREEN NEGATIVE (Neg); URINE OPIATE SCREEN NEGATIVE (Neg); URINE PHENCYCLIDINE SCREEN NEGATIVE (Neg)
[2024-11-24 18:20] VITALS: BP 142/89; PULSE 87; RESP 16; O2SAT 96
== END 2024-11-24 18:22 | disposition home or self-care (01) ==
LOC: ER 15:24
DX: R00.2 Palpitations (principal); R25.2 Cramp and spasm; I10 Essential (primary) hypertension; J45.909 Unspecified asthma, uncomplicated; K21.9 Gastro-esophageal reflux disease without esophagitis; F32.A Depression, unspecified; F41.9 Anxiety disorder, unspecified; I25.10 Atherosclerotic heart disease of native coronary artery without angina pectoris; Z88.0 Allergy status to penicillin; Z90.710 Acquired absence of both cervix and uterus
CPT/HCPCS: 36415; 71045; 80053; 80305; 81003; 83880; 84439; 84443; 84484; 84703; 85025; 93005; 99285

== ENCOUNTER 2025-01-03 12:30 | Emergency (ER) | payer MEDICARE ==
[~2025-01-03] VITALS: Ht 157.5 cm; Wt 79.2 kg
[2025-01-03] MEDS ORDERED: PRED20TA PO (15:13)
[2025-01-03] MEDS ORDERED: AMOX-580 PO (15:13)
[2025-01-03] MEDS: methylPREDNISolone sod succ 125mg/2ml vial IV ONE (15:25)
[2025-01-03] MEDS: ipratropium/albuterol 3ml nebule NEB ONE (15:26)
[2025-01-03 15:27] VITALS: PULSE 79; PULSE 87; RESP 20; O2SAT 98; O2SAT 99
[2025-01-03] MEDS: albuterol 2.5 MG/3 ML nebule NEB ONE (16:44)
[2025-01-03 16:51] VITALS: BP 146/94; PULSE 98; RESP 15; TEMP 97.8; O2SAT 99
== END 2025-01-03 16:55 | disposition home or self-care (01) ==
LOC: ER 12:30
DX: J45.901 Unspecified asthma with (acute) exacerbation (principal); J32.9 Chronic sinusitis, unspecified; I10 Essential (primary) hypertension; I25.10 Atherosclerotic heart disease of native coronary artery without angina pectoris; Z90.710 Acquired absence of both cervix and uterus; Z88.0 Allergy status to penicillin
CPT/HCPCS: 71045; 94640; 96374; 99283; J2919; 94760

== ENCOUNTER 2025-02-09 11:38 | Emergency (ER) | payer MEDICARE ==
[~2025-02-09] VITALS: Ht 157.5 cm; Wt 78.9 kg
[2025-02-09 11:42] VITALS: TEMP 98.4
[2025-02-09 12:20] LABS: BASOPHILS # (AUTO) 0.1 X10'3 (0-0.2); EOSINOPHILS # (AUTO) 0.1 X10'3 (0-0.9); LYMPHOCYTES # (AUTO) 1.9 X10'3 (1.1-4.8); MONOCYTES # (AUTO) 0.5 X10'3 (0-0.9); MONOCYTES % (AUTO) 9.7 % (2-12); NEUTROPHILS # (AUTO) 2.9 X10'3 (1.8-7.7)
[2025-02-09 12:22] LABS: BASOPHILS % (AUTO) 1.3 % (0-1); EOSINOPHILS % (AUTO) 2.4 % (0-6); HEMATOCRIT 35.1 % (35.0-45.0); HEMOGLOBIN 11.1 g/dl (12.0-16.0); LYMPHOCYTES % (AUTO) 34.9 % (21-51); MEAN CORPUSCULAR HEMOGLOBIN 23.6 PG (27.0-31.0); MEAN CORPUSCULAR HGB CONC 31.6 g/dL (33.0-36.5); MEAN CORPUSCULAR VOLUME 74.8 FL (78-98); MEAN PLATELET VOLUME 9.4 FL (7.4-10.4); NEUTROPHILS % (AUTO) 51.7 % (42-75); PLATELET COUNT 247 X10'3 (140-440); RED CELL DISTRIBUTION WIDTH 17.2 % (11.5-14.5); WHITE BLOOD COUNT 5.6 X10'3 (4.5-11.0)
[2025-02-09 12:31] LABS: ALANINE AMINOTRANSFERASE 33 U/L (12-78); ALBUMIN 3.8 G/DL (3.4-5.0); ALBUMIN/GLOBULIN RATIO 1.1 (1.1-1.5); ALKALINE PHOSPHATASE 77 IU/L (46-116); ANION GAP 9 (8-16); ASPARTATE AMINO TRANSFERASE 28 U/L (10-37); BILIRUBIN,TOTAL 0.5 MG/DL (0.1-1.0); BLOOD UREA NITROGEN 10 MG/DL (7-18); BUN/CREATININE RATIO 12.8 (10.0-20.0); CALCIUM 8.8 MG/DL (8.5-10.1); CHLORIDE 103 MMOL/L (99-107); CREATININE 0.78 MG/DL (0.40-0.90); GLUCOSE 103 MG/DL (70-104); POTASSIUM 3.5 MMOL/L (3.5-5.1); SODIUM 138 MMOL/L (135-145); TOTAL CARBON DIOXIDE 26.2 MMOL/L (24-32); TOTAL PROTEIN 7.3 G/DL (6.4-8.2); eCRCL 68 ML/MIN; eGFR 78 ML/MIN
[2025-02-09 12:39] LABS: PRO BRAIN NATRIURETIC PEPTIDE 62 PG/ML (0-125)
[2025-02-09 13:27] VITALS: BP 146/81; PULSE 65; O2SAT 99
[2025-02-09 14:54] VITALS: RESP 16
== END 2025-02-09 14:56 | disposition home or self-care (01) ==
LOC: ER 11:39
DX: H74.02 Tympanosclerosis, left ear (principal); I10 Essential (primary) hypertension; I25.10 Atherosclerotic heart disease of native coronary artery without angina pectoris; J45.909 Unspecified asthma, uncomplicated; K21.9 Gastro-esophageal reflux disease without esophagitis; F41.9 Anxiety disorder, unspecified; F32.A Depression, unspecified; I16.1 Hypertensive emergency; Z90.710 Acquired absence of both cervix and uterus; Z88.0 Allergy status to penicillin; Z79.899 Other long term (current) drug therapy
CPT/HCPCS: 36415; 70450; 80053; 83880; 84484; 85025; 93005; 99284

== ENCOUNTER 2025-05-01 18:40 | Emergency (ER) | payer MEDICARE ==
[2025-05-01 19:26] LABS: MEAN PLATELET VOLUME 9.4 FL (7.4-10.4); RED CELL DISTRIBUTION WIDTH 19.6 % (11.5-14.5)
[2025-05-01 19:31] LABS: LEUKOCYTE ESTERASE ,URINE TRACE (Neg); NITRITES, URINE NEGATIVE (Neg); OCCULT BLOOD,URINE NEGATIVE (Neg)
[2025-05-01 19:34] LABS: URINE HCG NEGATIVE (NEG)
[2025-05-01 19:38] LABS: CREATININE 0.99 MG/DL (0.40-0.90); TOTAL CARBON DIOXIDE 23.6 MMOL/L (24-32); eGFR 59 ML/MIN
[2025-05-01 19:39] LABS: UA COLLECTION TYPE CLN CATCH MIDSTREAM
[2025-05-01 19:51] LABS: SQUAMOUS EPITHELIAL CELL,UR MANY /LPF (FEW)
[2025-05-01 19:52] LABS: MUCUS STRANDS MANY /LPF (Neg)
[2025-05-01 19:53] LABS: HYALINE CASTS 0-3 /LPF (NEGATIVE)
[2025-05-01 21:34] LABS: LARGE PLATELETS FEW; PLATELET ESTIMATE NORMAL
--- NOTE | 2025-05-01 21:42 | Physician Documentation ---
History of Present Illness ~ Chief Complaint: Abdominal Pain Stated Complaint: ABD PAIN Time Seen by MD: 21:34 Primary Medical Doctor: [facility] HPI Patient presents to the emergency room with epigastric burning pain that has well as some bright red blood per rectum. Symptoms began one month ago and she associates it with the distress associated with the passing of her father. Took some Nexium today as well as some Pepto-Bismol with no relief. She is also endorsing diarrhea x1 month. No fevers Medication Reconciliation Allergies: Coded Allergies: Penicillins (Verified Allergy, Unknown, 01/03/25) Scheduled Esomeprazole Mag Trihydrate* (Nexium*), 1 CAP PO BIDAC, (Reported) Fluticasone/Umeclidin/Vilanter (Trelegy Ellipta 100-62.5-25), 1 PUFFS INH DAILY, (Reported) Ipratropium/Albuterol Sulfate (IPRAT-ALBUT 0.5-3(2.5) MG/3 ML nebule), 3 ML NEB Q6H Lisinopril/Hydrochlorothiazide (Lisinopril-Hctz 20-25 mg Tab), 1 TAB PO DAILY, (Reported) Montelukast Sodium (Montelukast Sodium), 10 MG PO DAILY Potassium Chloride (Potassium Chloride), 1 TAB PO DAILY Scheduled PRN Alprazolam (Alprazolam), 1 TAB PO TID PRN PRN for anxiety albuterol inhaler (Pro-Air Inhaler), 1-2 PUFFS PO Q4H PRN for SOB or wheezing Past Medical History Past Medical History: Hypertension, Asthma, Bronchitis, Pneumonia, GERD, Hernia, Extremity Fracture, Anxiety, Depression Past Surgical History: hysterectomy Patient History: (CAD) Coronary arteriosclerosis MOTHER, Onset:Unknown ([place]) Myocardial infarction MOTHER, Onset:Unknown Maternal great grandmother Cardiac arrest MOTHER, Onset:Unknown Alcohol Use: Rarely Drug Use: none Lives with: Spouse Lives In: Home Occupation: disabled Review of Systems ROS All review of systems negative except as per HPI Physical Exam Vital Signs: Temperature: 98.6, Source: Oral, Heart Rate: 86, Respiratory Rate: 12, BP: 162/97, Pulse Oximetry: 100 Oxygen Flow Rate: 0 Physical Exam General: Patient is awake, alert, oriented x4 in no acute distress Head: Normocephalic and atraumatic. Eyes: Conjunctival normal. EOMI. PERRL. ENT: Mucous membranes moist. Neck: Supple, trachea is midline. Chest: Clear to auscultation bilaterally without rales, rhonchi, or wheezes. There is no accessory muscle use or retractions. Cardiac: RRR without murmurs, gallops, or rubs. Abd: Soft, nondistended, epigastric tenderness to palpation without peritonitis Progress Results/Orders Results/Orders Completed Orders - STEVO VIVEROS MD Hcg, Ur Ql (05/01/25 18:46) Cbc/Diff (05/01/25 18:46) BMP (05/01/25 18:46) Lipase (05/01/25 18:46) CMP (05/01/25 18:46) Ua W/Microscopic, Cult If Ind (05/01/25 18:50) Ondansetron Inj. (Zofran 4mg/2ml Vial) (05/01/25 21:40) Mag & Alum Hydrox/Simeth Susp (Maalox Or (05/01/25 21:40) Lidocaine 2% Viscous (Xylocaine 2% Visco (05/01/25 21:40) Famotidine/Pf Iv Inj (Pepcid Iv Inj) (05/01/25 21:40) Medications Received in ER Medications (Trade) Dose Ordered Sig/Tita Route PRN Reason Start Time Stop Time Status Last Admin Dose Admin (Zofran 4mg/2ml vial) 8 mg ONCE ONCE IV 05/01/25 21:40 05/01/25 21:42 DC 05/01/25 22:08 8 MG (Maalox oral suspension) 30 ml ONCE ONCE PO 05/01/25 21:40 05/01/25 21:41 DC 05/01/25 22:03 30 ML (Xylocaine 2% Viscous 15mL cup) 15 ml ONCE ONCE MM 05/01/25 21:40 05/01/25 21:41 DC 05/01/25 22:04 15 ML (Pepcid IV inj) 40 mg ONCE ONCE IV 05/01/25 21:40 05/01/25 21:41 DC 05/01/25 22:00 40 MG Vital Signs 05/01/25 05/01/25 18:47 19:24 Temp 98.6 98.6 Pulse 98 86 Resp 16 12 B/P (MAP) 122/87 162/97 (118) Pulse Ox 100 100 O2 Flow Rate 0 0 Laboratory Tests Test 05/01/25 18:50 05/01/25 19:06 Urine Specimen Description Cln catch midstream Urine Color Yellow Urine Clarity Clear Urine pH 6.0 Urine Specific [place] 1.025 Urine Protein Negative Urine Glucose (UA) Negative Urine Ketones Negative Urine Occult Blood Negative Urine Nitrite Negative Urine Bilirubin Negative Urine Urobilinogen 0.2 Urine Leukocyte Esterase Trace H Urine RBC 0-2 Urine WBC 5-10 H Urine Squamous Epithelial Cells Many Urine Bacteria Few Urine Hyaline Casts 0-3 Urine Mucus Many Urine Culture Indicated Rejected for culture Volume Urine Centrifuged 10 ml Urine HCG, Qualitative Negative Urine Comment White Blood Count 6.4 Red Blood Count 4.71 Hemoglobin 10.5 L Hematocrit 33.1 L Mean Corpuscular Volume 70.2 L Mean Corpuscular Hemoglobin 22.2 L Mean Corpuscular Hemoglobin Concent 31.7 L Red Cell Distribution Width 19.6 H Platelet Count 241 Mean Platelet Volume 9.4 Neutrophils (%) (Auto) 53.6 Lymphocytes (%) (Auto) 35.3 Monocytes (%) (Auto) 9.1 Eosinophils (%) (Auto) 0.8 Basophils (%) (Auto) 1.2 H Neutrophils # (Auto) 3.4 Lymphocytes # (Auto) 2.3 Monocytes # (Auto) 0.6 Eosinophils # (Auto) 0.0 Basophils # (Auto) 0.1 CBC Comment Platelet Estimate Normal Large Platelets Few Red Blood Cell Morphology Perf Basophilic Stippling Anisocytosis 1+ Microcytosis Few Sodium Level 134 L Potassium Level 3.7 Chloride Level 98 L Carbon Dioxide Level 23.6 L Anion Gap 12 Blood Urea Nitrogen 10 Creatinine 0.99 H Estimated GFR/1.73 m2 59 BUN/Creatinine Ratio 10.1 Glucose Level 105 H Calcium Level 9.0 Total Bilirubin 0.3 Aspartate Amino Transf (AST/SGOT) 33 Alanine Aminotransferase (ALT/SGPT) 37 Alkaline Phosphatase 80 Total Protein 7.4 Albumin 3.7 Globulin 3.7 Albumin/Globulin Ratio 1.0 L Lipase 47 Chemistry Comments Medical Decision Making Findings Patient presents to the emergency room with epigastric burning pain as per HPI. Differentials include but are not limited to gastritis ACS cholecystitis p ancreatitis diverticulitis therefore emergent labs ordered. Labs reassuring for no elevation of white blood cell count. Given patient's history we will treat her for gastritis. No report of chest pain and given tenderness to palpation he had not feel she requires investigation to ACS. ER precautions discussed Departure Disposition: HOME / SELF CARE / HOMELESS Impression: Primary Impression: Acute gastritis Condition: Stable Discharge Instructions: Abdominal Pain (Nonspecific) Referrals: NO PRIMARY CARE PROVIDER (PCP) Prescriptions Ondansetron 8mg ODT (Ondansetron Odt) 8 Mg Tab.rapdis 1 TAB PO Q6H for nausea/vomiting for 3 Days, #12 TAB 0 Refills Prov: STEVO VIVEROS MD 05/01/25 Famotidine (Pepcid) 20 Mg Tablet 1 TAB PO Q12H for 30 Days, #60 TAB 0 Refills Prov: STEVO VIVEROS MD 05/01/25 Education Educated: Patient Educated regarding: diagnosis, treatment, need for follow up Signature Scribe Signature: No scribe Attestation: The note accurately reflects work and decisions made by me.Stevo Viveros MD 05/01/25 23:22 STEVO VIVEROS MD May 01, 2025 21:42
[2025-05-01] MEDS: famotidine/PF 10 mg/ml inj IV ONE (22:00)
[2025-05-01] MEDS: mag hydrox/Alum hydrox/simeth 30ml oral suspension PO ONE (22:03)
[2025-05-01] MEDS: LIDOcaine 2% Viscous 15ml cup MM ONE (22:04)
[2025-05-01] MEDS: ondansetron/PF 4mg/2ml inj IV ONE (22:08)
[2025-05-01] MEDS ORDERED: FAMO-129 PO (23:22)
[2025-05-01] MEDS ORDERED: ONDA-245 PO (23:22)
[2025-05-01 23:30] VITALS: BP 128/70; PULSE 78; RESP 16; TEMP 98.2; O2SAT 99
== END 2025-05-01 23:29 | disposition home or self-care (01) ==
LOC: ER 18:41
DX: K29.00 Acute gastritis without bleeding (principal); I10 Essential (primary) hypertension; K21.9 Gastro-esophageal reflux disease without esophagitis; J45.909 Unspecified asthma, uncomplicated; F41.9 Anxiety disorder, unspecified; F32.A Depression, unspecified; I25.10 Atherosclerotic heart disease of native coronary artery without angina pectoris; Z88.0 Allergy status to penicillin; Z90.710 Acquired absence of both cervix and uterus
CPT/HCPCS: 36415; 80053; 81001; 81025; 83690; 85025; 96374; 96375; 99284; J2405; J3490; 85008

== ENCOUNTER 2025-06-15 10:11 | Emergency (ER) | payer MEDICARE ==
[~2025-06-15] VITALS: Ht 157.5 cm; Wt 75.0 kg
[~2025-06-15 10:11] MED LIST changes: +FAMO-129 PO; +ONDA-245 PO
--- NOTE | 2025-06-15 11:18 | Physician Documentation ---
History of Present Illness ~ Chief Complaint: See Chief Complaint Stated Complaint: GASTRIC BLEEDING AND ANEMIA Time Seen by MD: 14:03 Primary Medical Doctor: [facility] This is a 49 Year old female with complaints of possible GI bleed with intermittent bloody diarrhea she states that there is blood clots and red blood but not every day. Patient does have recent labs by her primary care she does appear to be anemic with chronic anemia low iron H&H 10 and 34 vital signs reassuring. Patient admits to some mild abdominal cramping with diarrhea off and on over the last few months. Patient states her father few months ago and she has been very stressed and having hard time with that. Medication Reconciliation Allergies: Coded Allergies: Penicillins (Verified Allergy, Unknown, 06/15/25) Scheduled Esomeprazole Mag Trihydrate* (Nexium*), 1 CAP PO BIDAC, (Reported) Famotidine (Pepcid), 1 TAB PO Q12H Fluticasone/Umeclidin/Vilanter (Trelegy Ellipta 100-62.5-25), 1 PUFFS INH DAILY, (Reported) Ipratropium/Albuterol Sulfate (IPRAT-ALBUT 0.5-3(2.5) MG/3 ML nebule), 3 ML NEB Q6H Lisinopril/Hydrochlorothiazide (Lisinopril-Hctz 20-25 mg Tab), 1 TAB PO DAILY, (Reported) Montelukast Sodium (Montelukast Sodium), 10 MG PO DAILY Ondansetron 8mg ODT (Ondansetron Odt), 1 TAB PO Q6H Potassium Chloride (Potassium Chloride), 1 TAB PO DAILY Scheduled PRN Alprazolam (Alprazolam), 1 TAB PO TID PRN PRN for anxiety albuterol inhaler (Pro-Air Inhaler), 1-2 PUFFS PO Q4H PRN for SOB or wheezing Past Medical History Past Medical History: Hypertension, Asthma, Bronchitis, Pneumonia, GERD, Hernia, Extremity Fracture, Anxiety, Depression Past Surgical History: hysterectomy Patient History: (CAD) Coronary arteriosclerosis MOTHER, Onset:Unknown ([place]) Myocardial infarction MOTHER, Onset:Unknown Maternal great grandmother Cardiac arrest MOTHER, Onset:Unknown Alcohol Use: Rarely Drug Use: none Lives with: Spouse Lives In: Home Occupation: disabled Review of Systems Constitutional: Denies: chills, fever, weakness Eyes: Denies: pain, blurred vision ENT: Denies: ear pain, nose pain, throat pain, mouth pain Respiratory: Denies: cough, shortness of breath Cardiovascular: Denies: chest pain, palpitations Gastrointestinal: Denies: abdominal pain, nausea, vomiting Genitourinary: Denies: burning, dysuria Female Genitalia: Denies: vaginal discharge, pelvic pain Neurological: Denies: headache, dizziness Musculoskeletal: Denies: pain, swelling Integumentary: Denies: rash, lesions Allergic/Immunologic: Denies: hives, itching Hematologic/Lymphatic: Denies: no symptoms reported Psychiatric: Denies: depression, anxiety Physical Exam Vital Signs: Temperature: 98.7, Source: Oral, Heart Rate: 84, Respiratory Rate: 18, BP: 152/59, Pulse Oximetry: 99, Weight: 75.000 Physical Exam General: Awake and Alert, no acute distress. HEENT: Conjunctiva pink, Sclera clear, Mucus Membranes moist. Neck: Supple without masses and tenderness. Resp: Unlabored. Lungs clear to auscultation bilaterally. Heart: Regular Rate and rhythm, normal S1 and S2 without murmur, rub or gallop. Abdomen: Patient on exam has mild tenderness to palpation diffusely of the abdomen only, abdomen is nondistended, no guarding, no rebound tenderness, no masses. Extremities: No cyanosis,clubbing or edema. Skin: Warm and Dry. General Appearance: alert, WD/WN, no apparent distress Respiratory: lungs clear, normal breath sounds, no respiratory distress Chest: no accessory muscle use, chest non-tender Cardiology Exam: regular rate, rhythm Progress Results/Orders Results/Orders Vital Signs 06/15/25 06/15/25 06/15/25 10:33 14:38 14:40 Temp 98.7 98.1 Pulse 84 75 Resp 18 14 B/P (MAP) 152/59 164/88 (113) Pulse Ox 99 99 O2 Flow Rate 0 Laboratory Tests Test 06/15/25 12:51 06/15/25 15:00 White Blood Count 6.3 Red Blood Count 5.01 Hemoglobin 11.8 L Hematocrit 37.3 Mean Corpuscular Volume 74.5 L Mean Corpuscular Hemoglobin 23.6 L Mean Corpuscular Hemoglobin Concent 31.7 L Red Cell Distribution Width 22.3 H Platelet Count 267 Mean Platelet Volume 9.5 Neutrophils (%) (Auto) 59.8 Lymphocytes (%) (Auto) 30.4 Monocytes (%) (Auto) 6.8 Eosinophils (%) (Auto) 1.8 Basophils (%) (Auto) 1.2 H Neutrophils # (Auto) 3.7 Lymphocytes # (Auto) 1.9 Monocytes # (Auto) 0.4 Eosinophils # (Auto) 0.1 Basophils # (Auto) 0.1 CBC Comment Platelet Estimate Normal Red Blood Cell Morphology Perf Hypochromasia 1+ Basophilic Stippling Anisocytosis 3+ Microcytosis 1+ Target Cells Few Stomatocytes 1+ Sodium Level 136 Potassium Level 3.5 Chloride Level 100 Carbon Dioxide Level 24.5 Anion Gap 12 Blood Urea Nitrogen 8 Creatinine 0.76 Estimated GFR/1.73 m2 81 BUN/Creatinine Ratio 10.5 Glucose Level 96 Calcium Level 9.5 Albumin 4.5 Chemistry Comments Urine Specimen Description Cln catch midstream Urine Color Yellow Urine Clarity Slightly cloudy Urine pH 5.5 Urine Specific [place] >=1.030 Urine Protein Negative Urine Glucose (UA) Negative Urine Ketones 15 H Urine Occult Blood Negative Urine Nitrite Negative Urine Bilirubin Small Urine Urobilinogen 0.2 Urine Leukocyte Esterase Negative Urine RBC None seen Urine WBC 0-4 Urine Squamous Epithelial Cells Many Urine Bacteria Few Urine Culture Indicated Not ind Volume Urine Centrifuged 10 ml Urine Comment Medical Decision Making Findings This is a 49 Year old female with complaints of possible GI bleed with intermittent bloody diarrhea she states that there is blood clots and red blood but not every day. Patient does have recent labs by her primary care she does appear to be anemic with chronic anemia low iron H&H 10 and 34 vital signs reassuring. Patient admits to some mild abdominal cramping with diarrhea off and on over the last few months. Patient states her father few months ago and she has been very stressed and having hard time with that. Patient was given prescription of Bentyl to be taken as prescribed. Patient will follow up with primary care for referral to GI specialist for consult and colonoscopy. Patient will return to ED with any worsening, concerning or changing symptoms. Departure Disposition: 01 HOME / SELF CARE / HOMELESS Impression: Primary Impression: Anemia Qualified Codes: D64.9 - Anemia, unspecified Additional Impression: Diverticula, colon Condition: Stable Discharge Instructions: Diverticulosis Additional Instructions: Patient was given prescription of Bentyl to be taken as prescribed. Patient will follow up with primary care for referral to GI specialist for consult and colonoscopy. Patient will return to ED with any worsening, concerning or changing symptoms. Referrals: NO PRIMARY CARE PROVIDER (PCP) Prescriptions Dicyclomine HCl (Dicyclomine HCl) 20 Mg Tablet 1 TAB PO Q6H for irritable bowel symptoms for 15 Days, #60 TAB 0 Refills Prov: JAMES NEGRETE 06/15/25 Signature Scribe Signature: No scribe Attestation: No scribDEYANIRA Russ NP Jun 15, 2025 11:18 JAMES NEGRETE Jun 15, 2025 15:00
[2025-06-15 13:19] LABS: MEAN PLATELET VOLUME 9.5 FL (7.4-10.4); RED CELL DISTRIBUTION WIDTH 22.3 % (11.5-14.5)
[2025-06-15 13:42] LABS: CREATININE 0.76 MG/DL (0.40-0.90); TOTAL CARBON DIOXIDE 24.5 MMOL/L (24-32); eCRCL 70 ML/MIN; eGFR 81 ML/MIN
[2025-06-15 13:46] LABS: PLATELET ESTIMATE NORMAL
[2025-06-15 14:38] VITALS: BP 164/88; PULSE 75; RESP 14; TEMP 98.1; O2SAT 99
[2025-06-15 15:20] LABS: LEUKOCYTE ESTERASE ,URINE NEGATIVE (Neg); NITRITES, URINE NEGATIVE (Neg); OCCULT BLOOD,URINE NEGATIVE (Neg)
[2025-06-15 15:30] LABS: UA COLLECTION TYPE CLN CATCH MIDSTREAM
[2025-06-15 15:50] LABS: SQUAMOUS EPITHELIAL CELL,UR MANY /LPF (FEW)
[2025-06-15] MEDS ORDERED: DICY20TA17 PO (21:47)
== END 2025-06-15 15:33 | disposition home or self-care (01) ==
LOC: ER 10:12
DX: D64.9 Anemia, unspecified (principal); K57.30 Diverticulosis of large intestine without perforation or abscess without bleeding; I10 Essential (primary) hypertension; I25.10 Atherosclerotic heart disease of native coronary artery without angina pectoris; J45.909 Unspecified asthma, uncomplicated; K21.9 Gastro-esophageal reflux disease without esophagitis; Z88.0 Allergy status to penicillin; Z90.710 Acquired absence of both cervix and uterus
CPT/HCPCS: 36415; 80048; 81001; 85008; 85025; 99283

== ENCOUNTER 2025-08-06 13:09 | Emergency (ER) | payer MEDICARE ==
[~2025-08-06] VITALS: Ht 157.5 cm; Wt 76.5 kg
[~2025-08-06 13:09] MED LIST changes: +DICY20TA17 PO
[2025-08-06 13:11] VITALS: BP 152/97; PULSE 96; RESP 18; TEMP 98; O2SAT 100
[2025-08-06 14:36] LABS: MEAN PLATELET VOLUME 8.7 FL (7.4-10.4); RED CELL DISTRIBUTION WIDTH 19.5 % (11.5-14.5)
[2025-08-06 14:55] LABS: CREATININE 0.74 MG/DL (0.40-0.90); TOTAL CARBON DIOXIDE 26.5 MMOL/L (24-32); eCRCL 72 ML/MIN; eGFR 83 ML/MIN
[2025-08-06 15:07] LABS: PLATELET ESTIMATE NORMAL
== END 2025-08-06 19:37 | disposition left against medical advice (07) ==
LOC: ER 13:10
DX: K62.5 Hemorrhage of anus and rectum (principal); Z53.21 Procedure and treatment not carried out due to patient leaving prior to being seen by health care provider; Z88.0 Allergy status to penicillin
CPT/HCPCS: 36415; 80053; 85008; 85025; 99281